=== PATIENT | male | born 1985 | race African-American/Black ===

== ENCOUNTER 2017-08-01 20:51 | Emergency (ER) | payer SELFPAY ==
[2017-08-01 21:06] VITALS: BP 151/74
[2017-08-01] MEDS ORDERED: LOPERAMIDE HCL 2 MG CAPSULE PO ONE (22:02)
[2017-08-01] MEDS ORDERED: ONDANSETRON 4 MG TAB.RAPDIS PO ONE (22:02)
--- NOTE | 2017-08-01 22:06 | ER Document Report ---
ED General - General Chief Complaint: Nausea/Vomiting Stated Complaint: FLU LIKE SYMPTOMS Time Seen by Provider: 08/01/17 21:54 Mode of Arrival: Ambulatory Information source: Patient Notes: 31-year-old male with no significant past medical history presents with complaint of nausea and diarrhea. Patient states symptoms started 3 hours prior to arrival. He has had 2 episodes of nonbloody nonbilious vomiting and 2 episodes of nonbloody diarrhea. He denies any associated fever, chills, chest pain shortness of breath, or abdominal pain. Patient's last episode of vomiting was 2 hours prior to arrival. Denies sick contacts, recent travel, recent antibiotic use. TRAVEL OUTSIDE OF THE [place] IN LAST 30 DAYS: No - HPI Onset: This evening Onset/Duration: Gradual Quality of pain: No pain Associated symptoms: Diarrhea, Nausea. denies: Vomiting Exacerbated by: Denies Relieved by: Denies Similar symptoms previously: No Recently seen / treated by doctor: No - Related Data Allergies/Adverse Reactions: No Known Allergies Allergy (Verified 11/25/14 13:54) Past Medical History - Social History Smoking Status: Current Every Day Smoker Frequency of alcohol use: Occasional Drug Abuse: Marijuana Lives with: Spouse/Significant other Family History: Reviewed & Not Pertinent Patient has suicidal ideation: No Patient has homicidal ideation: No - Medical History Medical History: Negative - Past Medical History Cardiac Medical History: Reports: None Pulmonary Medical History: Reports: None Renal/ Medical History: Denies: Hx Peritoneal Dialysis - Immunizations Hx Diphtheria, Pertussis, Tetanus Vaccination: Yes Review of Systems - Review of Systems Constitutional: Chills, Weakness. denies: Fever EENT: No symptoms reported Cardiovascular: No symptoms reported Gastrointestinal: Diarrhea, Nausea, Vomiting. denies: Blood streaked bowels, Poor fluid intake, Blood in vomit, Black stools Genitourinary: denies: Dysuria, Flank pain Physical Exam - Vital signs Vitals: Temp Pulse Resp BP Pulse Ox 98.7 F 67 17 151/74 H 67 L 08/01/17 20:52 08/01/17 20:52 08/01/17 20:52 08/01/17 20:52 08/01/17 20:52 Course - Re-evaluation Re-evalutation: 08/01/17 22:12 31-year-old male with no significant past medical history presents with complaint of 2 episodes of vomiting and 2 episodes of diarrhea that started just prior to arrival. Arrival vitals reviewed and within normal limits. Patient does not appear toxic or dehydrated. He is in no acute distress. Exam is within normal limits. Patient was administered Zofran, loperamide during his ED course. Patient tolerated fluids prior to discharge. Patient was discharged home in stable condition with prescriptions for Zofran and loperamide. - Vital Signs Vital signs: Temp Pulse Resp BP Pulse Ox 98.7 F 67 17 151/74 H 99 08/01/17 21:02 08/01/17 21:02 08/01/17 21:02 08/01/17 21:02 08/01/17 21:02 Discharge - Discharge Clinical Impression: Diarrhea, Nausea & vomiting Condition: Good Disposition: HOME, SELF-CARE Instructions: Prescribed Antidiarrhea Medications ([facility]), Antinausea Medication ([facility]), Diarrhea, Nonspecific ([facility]), Vomiting ([facility]) Prescriptions: Loperamide HCl [Loperamide] 2 mg PO Q8H PRN 4 Days #12 capsule PRN Reason: Ondansetron [Zofran Odt 4 mg Tablet] 1 - 2 tab PO Q4H PRN #15 tab.rapdis PRN Reason: For Nausea/Vomiting
== END 2017-08-01 22:45 | disposition home or self-care (01) ==
LOC: ER 20:51
DX: R11.2 Nausea with vomiting, unspecified (principal); R19.7 Diarrhea, unspecified; R68.83 Chills (without fever); R53.1 Weakness; F17.200 Nicotine dependence, unspecified, uncomplicated
CPT/HCPCS: 99283; S0119

== ENCOUNTER 2017-09-28 20:23 | Emergency (ER) | payer SELFPAY ==
--- NOTE | 2017-09-28 21:35 | RADIOLOGY REPORT (SQ) ---
EXAM DESCRIPTION: WRIST RIGHT 3 VIEWS COMPLETED DATE/TIME: 09/28/2017 9:16 pm REASON FOR STUDY: Pain s/p injury COMPARISON: None. NUMBER OF VIEWS: Three views. TECHNIQUE: AP, lateral, and oblique radiographic images acquired of the right wrist. LIMITATIONS: None. FINDINGS: MINERALIZATION: Normal. BONES: No acute fracture or dislocation. No worrisome bone lesions. Normal alignment. SOFT TISSUES: No soft tissue swelling. No foreign body. OTHER: No other significant finding. IMPRESSION: NO RADIOGRAPHIC EVIDENCE OF ACUTE INJURY. TECHNICAL DOCUMENTATION: JOB ID: [id number] [place]-72 2010 [employer]- All Rights Reserved Reading location - IP/workstation name: [email or web address]
--- NOTE | 2017-09-28 21:38 | RADIOLOGY REPORT (SQ) ---
EXAM DESCRIPTION: HAND RIGHT 3 VIEWS COMPLETED DATE/TIME: 09/28/2017 9:16 pm REASON FOR STUDY: Pain s/p injury COMPARISON: None. EXAM PARAMETERS: NUMBER OF VIEWS: Three views. TECHNIQUE: AP, lateral and oblique radiographic images acquired of the right hand. LIMITATIONS: None. FINDINGS: MINERALIZATION: Normal. BONES: No acute fracture or dislocation. No worrisome bone lesions. JOINTS: No effusions. SOFT TISSUES: No soft tissue swelling. No foreign body. OTHER: No other significant finding. IMPRESSION: NO RADIOGRAPHIC EVIDENCE OF ACUTE INJURY. TECHNICAL DOCUMENTATION: JOB ID: [id number] [place]-72 2010 [employer]- All Rights Reserved Reading location - IP/workstation name: [email or web address]
[2017-09-28] MEDS ORDERED: HYDROCODONE/ACETAMINOPHEN 5-325 MG (6 TAB/ER DISP) PO PRN (22:20)
--- NOTE | 2017-09-28 22:21 | ER Document Report ---
HPI - HPI Patient complains to provider of: Right wrist injury Onset: Yesterday Onset/Duration: Sudden Quality of pain: Achy Pain Level: 4 Context: Patient states that he fell while rollerskating injuring his right wrist. Patient is right-hand dominant. Patient complains of continued right wrist tenderness. Associated Symptoms: Other - Right wrist pain Exacerbated by: Movement Relieved by: Denies Similar symptoms previously: No Recently seen / treated by doctor: No - ROS ROS below otherwise negative: Yes Systems Reviewed and Negative: Yes All other systems reviewed and negative - REPRODUCTIVE Reproductive: DENIES: : - MUSCULOSKELETAL Musculoskeletal: REPORTS: Extremity pain - DERM Skin Problems: None Past Medical History - General Information source: Patient - Social History Smoking Status: Current Every Day Smoker Smoking Education Provided: Yes Frequency of alcohol use: None Drug Abuse: None Occupation: None Family History: Reviewed & Not Pertinent - Medical History Medical History: Negative Renal/ Medical History: Denies: Hx Peritoneal Dialysis Surgical Hx: Negative - Immunizations Hx Diphtheria, Pertussis, Tetanus Vaccination: Yes Vertical Provider Document - CONSTITUTIONAL Agree With Documented VS: Yes Exam Limitations: No Limitations General Appearance: WD/WN, No Apparent Distress - INFECTION CONTROL TRAVEL OUTSIDE OF THE [place] IN LAST 30 DAYS: No - HEENT HEENT: Atraumatic, Normocephalic - NECK Neck: Normal Inspection - RESPIRATORY Respiratory: No Respiratory Distress - CARDIOVASCULAR Pulses: Normal: Radial - BACK Back: Normal Inspection - MUSCULOSKELETAL/EXTREMETIES Musculoskeletal/Extremeties: MAEW, Tender - Right wrist tenderness over distal ulna, no deformity, no obvious edema - NEURO Level of Consciousness: Awake, Alert, Appropriate Motor/Sensory: No Motor Deficit, No Sensory Deficit - DERM Integumentary: Warm, Dry, No Rash Course - Re-evaluation Re-evalutation: 09/28/17 22:19 X-ray reviewed, no obvious fracture. Will treat for sprain at this time. Patient encouraged to follow-up with orthopedic doctor for any continued pain or problems. - Vital Signs Vital signs: Temp Pulse Resp BP Pulse Ox 98.5 F 89 20 118/68 95 09/28/17 20:31 09/28/17 20:31 09/28/17 20:31 09/28/17 20:31 09/28/17 20:31 Procedures - Immobilization Right Wrist Pre-Proc Neuro Vasc Exam: Normal Immobilizer type: Cock-up Performed by: RN Post-Proc Neuro Vasc Exam: Normal Alignment checked and good: Yes Discharge - Discharge Clinical Impression: Right wrist sprain Qualifiers: Encounter type: initial encounter Qualified Code(s): S63.501A - Unspecified sprain of right wrist, initial encounter Condition: Stable Disposition: HOME, SELF-CARE Instructions: Ice & Elevation ([facility]), Wrist Sprain ([facility]), Temporary Splint ([facility]) Additional Instructions: Return immediately for any new or worsening symptoms Followup with your primary care provider, call tomorrow to make a followup appointment Follow-up with orthopedic doctor for any continued pain or problems Prescriptions: Naproxen [Naprosyn 250 Nmg Tablet] 1 tab PO BID #14 tablet Forms: Smoking Cessation Education Referrals: [facility] [Provider Group] - Follow up as needed
[2017-09-28 23:51] VITALS: BP 111/63
== END 2017-09-28 22:33 | disposition home or self-care (01) ==
LOC: ER 20:23
DX: S63.501A Unspecified sprain of right wrist, initial encounter (principal); V00.121A Fall from non-in-line roller-skates, initial encounter; Y93.51 Activity, roller skating (inline) and skateboarding; F17.200 Nicotine dependence, unspecified, uncomplicated
CPT/HCPCS: 99283; 73130; 73110; L3908

== ENCOUNTER 2017-10-11 22:16 | Emergency (ER) | payer SELFPAY ==
[2017-10-11] MEDS ORDERED: HYDROCODONE/ACETAMINOPHEN 5-325 MG (6 TAB/ER DISP) PO PRN (23:38)
--- NOTE | 2017-10-11 23:41 | ER Document Report ---
HPI - HPI Patient complains to provider of: Right wrist pain Onset: Other - 09/28/2017 Onset/Duration: Persistent Quality of pain: Achy Pain Level: 4 Context: Patient states that he fell while rollerskating on 09/28/2017. Patient has had persistent right wrist pain since then. Patient has not followed up with an orthopedic doctor or primary care provider. Patient denies any new injury. Patient is right-hand dominant. Patient has not taken any medications today to help treat his symptoms. Associated Symptoms: Other - Right wrist pain. denies: Fever, Weakness Exacerbated by: Movement Relieved by: Denies Similar symptoms previously: No Recently seen / treated by doctor: Yes - ROS ROS below otherwise negative: Yes Systems Reviewed and Negative: Yes All other systems reviewed and negative - CONSTITUTIONAL Constitutional: DENIES: Fever - NEURO Neurology: DENIES: Weakness - GASTROINTESTINAL Gastrointestinal: DENIES: Nausea - REPRODUCTIVE Reproductive: DENIES: : - MUSCULOSKELETAL Musculoskeletal: REPORTS: Extremity pain. DENIES: Back Pain - DERM Skin Color: Normal Skin Problems: None Past Medical History - General Information source: Patient - Social History Smoking Status: Current Every Day Smoker Smoking Education Provided: Yes Frequency of alcohol use: Occasional Drug Abuse: None Occupation: None Family History: Reviewed & Not Pertinent Renal/ Medical History: Denies: Hx Peritoneal Dialysis Musculoskeltal Medical History: Reports Other - Carpal tunnel, tendinitis Surgical Hx: Negative - Immunizations Hx Diphtheria, Pertussis, Tetanus Vaccination: Yes Vertical Provider Document - CONSTITUTIONAL Agree With Documented VS: Yes Exam Limitations: No Limitations General Appearance: WD/WN, No Apparent Distress - INFECTION CONTROL TRAVEL OUTSIDE OF THE [place] IN LAST 30 DAYS: No - HEENT HEENT: Atraumatic, Normocephalic - NECK Neck: Normal Inspection - RESPIRATORY Respiratory: No Respiratory Distress - CARDIOVASCULAR Pulses: Normal: Radial - MUSCULOSKELETAL/EXTREMETIES Musculoskeletal/Extremeties: MAEW, Tender - Right wrist tenderness over the dorsal aspect, tenderness increases with flexion, extension and supination. No deformity, 1+ edema, normal skin color and temperature overlying joint - NEURO Level of Consciousness: Awake, Alert, Appropriate Motor/Sensory: No Motor Deficit - DERM Integumentary: Warm, Dry, No Rash Course - Re-evaluation Re-evalutation: 10/11/17 23:39 Patient without any evidence of fracture on the previous x-ray reports. Patient encouraged to follow-up with orthopedics for further evaluation. - Vital Signs Vital signs: Temp Pulse Resp BP Pulse Ox 98.5 F 71 20 122/81 97 10/11/17 22:41 10/11/17 22:41 10/11/17 22:41 10/11/17 22:41 10/11/17 22:41 - Diagnostic Test Radiology reviewed: Reports reviewed - Reviewed radiology reports from previous ER visit Discharge - Discharge Clinical Impression: Right wrist pain Condition: Stable Disposition: HOME, SELF-CARE Instructions: Anti-Inflammatory Medication ([facility]), Wrist Sprain ([facility]) Additional Instructions: Return immediately for any new or worsening symptoms Followup with your primary care provider, call tomorrow to make a followup appointment Follow-up with orthopedics for further evaluation, call Saturday for an appointment Prescriptions: Naproxen [Naprosyn 250 Nmg Tablet] 1 tab PO BID #14 tablet Forms: Smoking Cessation Education Referrals: [facility] ([facility] [Provider Group] - 10/14/17
[2017-10-11 23:59] VITALS: BP 123/84
== END 2017-10-11 23:59 | disposition home or self-care (01) ==
LOC: ER 22:16
DX: M25.531 Pain in right wrist (principal); V00.121A Fall from non-in-line roller-skates, initial encounter; Y93.51 Activity, roller skating (inline) and skateboarding; F17.200 Nicotine dependence, unspecified, uncomplicated; R60.0 Localized edema
CPT/HCPCS: 99283

== ENCOUNTER 2018-01-05 03:31 | Emergency (ER) | payer OTHER ==
[2018-01-05] MEDS ORDERED: NORMAL SALINE 1000 ML 1,000 ML IV ONE (04:00)
--- NOTE | 2018-01-05 04:00 | ER Document Report ---
ED General - General Chief Complaint: Altered Mental Status Stated Complaint: POSSIBLE ALTERED MENTAL STATUS Time Seen by Provider: 01/05/18 03:49 Notes: Patient is a 32-year-old male who today his partner. 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 During rating concierge receptionist he started to act weird and started hallucinating and acting agitated. Eventually gone to calm down and brought him to the ER. Pupils are enlarged. Patient's thinks that maybe but he put something in his drink. Patient currently is hallucinating and difficult to get a history from. TRAVEL OUTSIDE OF THE [place] IN LAST 30 DAYS: No - Related Data Allergies/Adverse Reactions: No Known Allergies Allergy (Verified 11/25/14 13:54) Past Medical History - Social History Smoking Status: Never Smoker Frequency of alcohol use: None Drug Abuse: None Family History: Reviewed & Not Pertinent Renal/ Medical History: Denies: Hx Peritoneal Dialysis - Immunizations Hx Diphtheria, Pertussis, Tetanus Vaccination: Yes Review of Systems - Review of Systems Notes: My Normal Review Basic REVIEW OF SYSTEMS: CONSTITUTIONAL : Denies fever, chills, or sweats. Denies recent illness. CARDIOVASCULAR: Denies chest pain. RESPIRATORY: Denies cough, cold, or chest congestion. Denies shortness of breath, difficulty breathing, or wheezing. GASTROINTESTINAL: Denies abdominal pain. Denies nausea, vomiting, or diarrhea. Denies constipation. Last BM: MUSCULOSKELETAL: Denies neck or back pain or joint pain or swelling. SKIN: Denies rash or skin lesions. NEUROLOGICAL: Altered mental status. Hallucinating. Denies headache. Denies weakness or paralysis or loss of use of either side. Denies problems with gait or speech. Denies sensory or motor loss. ALL OTHER SYSTEMS REVIEWED AND NEGATIVE. Physical Exam - Notes Notes: General Appearance: Well nourished, alert, patient's having difficulty staying still. He is up and walk around the room. Vitals: reviewed, See vital signs table. Head: no swelling or tenderness to the head Eyes: Pupils are dilated but equal and mildly reactive to light Mouth: No decreasd moisture Lungs: No wheezing, No rales, No rhonci, No accessory muscle use, good air exchange bilaterally. Heart: Normal rate, Regular rythm, No murmur, no rub Abdomen: Normal BS, soft, No rigidity, No abdominal tenderness, No guarding, no rebound, no abdominal masses, no organomegaly Extremities: strength 5/5 in all extremities, good pulses in all extremities, no swelling or tenderness in the extremities, no edema. Skin: warm, dry, appropriate color, no rash Neuro: speech clear, patient is awake and alert but cannot stay still. He is constantly up and walking around the room. His pupils are dilated but equal. Patient is talking and saying things but they do not make sense. Course - Re-evaluation Re-evalutation: 01/05/18 06:25 Patient is now more oriented and able to tell me what happened. Patient admits that he took ecstasy today. Patient is still at times randomly saying random words that do not coincide with her conversation; however, he is much improved compared to the first arrived. Patient is not any hyperthermia. He is otherwise well-appearing. Is not tremulous or swelling. Symptoms are improving. I talked to him and his at length informed him that I am more than happy to watch him here for several more hours until his symptoms completely resolve where they are welcome to go home and rest at home being that the will be watching the patient closely. I feel that he is safe to be discharged home as his symptoms are improving effective the [place] he is wearing off. They prefer to go home at this time. I informed him return to ER if he has worsening of his symptoms or if they have any further concerns. Patient and agree with plan and patient was discharged home. Dictation of this chart was performed using voice recognition software; therefore, there may be some unintended grammatical errors. - Laboratory Result Diagrams: 01/05/18 04:12 01/05/18 04:12 Laboratory results interpreted by me: 01/05/18 01/05/18 01/05/18 04:12 04:12 04:12 WBC 12.7 H Seg Neuts % (Manual) 79 H Band Neutrophils % 1 L Abs Neuts (Manual) 10.2 H Creatinine 1.32 H Urine Ketones 20 H Urine Urobilinogen 2.0 H Urine Ascorbic Acid 20 H Salicylates < 1.0 L Acetaminophen < 10 L - EKG Interpretation by Me Additional EKG results interpreted by me: 01/05/18 04:13 EKG is reviewed and interpreted by me. EKG shows sinus rhythm with a rate of [address] segment elevation or depression. No ischemic T-wave inversions. MI interval, QRS duration, QTc intervals are within normal range. Discharge - Discharge Clinical Impression: Ecstasy abuse Condition: Good Disposition: HOME, SELF-CARE Additional Instructions: Please do not do any illegal drugs. Please return to the ER immediately if you have intractable vomiting, fevers, or feel unwell. Forms: Return to Work
[2018-01-05 04:29] LABS: HEMATOCRIT 42.2 % (37.9-51.0); HEMOGLOBIN 14.9 g/dL (13.5-17.0); MEAN CORPUSCULAR HEMOGLOBIN 29.8 pg (27.0-33.4); MEAN CORPUSCULAR HGB CONC 35.3 g/dL (32.0-36.0); MEAN CORPUSCULAR VOLUME 84 fl (80-97); RED BLOOD COUNT 5.01 10^6/uL (4.35-5.55); RED CELL DISTRIBUTION WIDTH 13.5 % (11.5-14.0); WHITE BLOOD COUNT 12.7 10^3/uL (4.0-10.5)
[2018-01-05 04:40] LABS: PLATELET COUNT 167 10^3/uL (150-450)
[2018-01-05 04:44] LABS: ALANINE AMINOTRANSFERASE 24 U/L (21-72); ALBUMIN 4.7 g/dL (3.5-5.0); ALKALINE PHOSPHATASE 54 U/L (38-126); ANION GAP 17 (5-19); ASPARTATE AMINO TRANSFERASE 39 U/L (17-59); BILIRUBIN,DIRECT 0.2 mg/dL (0.0-0.4); BILIRUBIN,TOTAL 0.8 mg/dL (0.2-1.3); BLOOD UREA NITROGEN 12 mg/dL (7-20); CALCIUM 9.7 mg/dL (8.4-10.2); CARBON DIOXIDE 25 mmol/L (22-30); CHLORIDE 99 mmol/L (98-107); GLUCOSE 94 mg/dL (75-110); POTASSIUM 3.6 mmol/L (3.6-5.0); SODIUM 140.5 mmol/L (137-145); TOTAL PROTEIN 7.9 g/dL (6.3-8.2)
[2018-01-05 04:49] LABS: ACETAMINOPHEN < 10 ug/mL (10-30); ALCOHOL < 10 mg/dL (NONE DETECTED); SALICYLATE < 1.0 mg/dL (2.0-20.0)
[2018-01-05 05:05] LABS: ABSOLUTE MONOCYTES # (MANUAL) 0.5 10^3/uL (0.1-1.4); ABSOLUTE NEUTROPHILS# (MANUAL) 10.2 10^3/uL (1.7-8.2); BAND NEUTROPHILS % (MANUAL) 1 % (3-5); BASOPHILS % (MANUAL) 0 % (0-2); EOSINOPHILS % (MANUAL) 0 % (0-6); LYMPHOCYTES % (MANUAL) 16 % (13-45); MONOCYTES % (MANUAL) 4 % (3-13); SEGMENTED NEUTROPHILS % (MAN) 79 % (42-78); TOTAL CELLS COUNTED 100
[2018-01-05 05:06] LABS: PLATELET COMMENT ADEQUATE; RBC MORPHOLOGY COMMENT NORMO-CYTIC/CHROMIC
[2018-01-05 05:20] LABS: APPEARANCE,URINE CLEAR; BILIRUBIN,URINE NEGATIVE (NEGATIVE); COLOR,URINE YELLOW; GLUCOSE, URINE NEGATIVE (NEGATIVE); KETONES,URINE 20 mg/dL (NEGATIVE); LEUKOCYTE ESTERASE,URINE NEGATIVE (NEGATIVE); NITRITE,URINE NEGATIVE (NEGATIVE); PROTEIN,URINE NEGATIVE (NEGATIVE)
[2018-01-05 05:50] LABS: URINE AMPHETAMINES SCREEN NEGATIVE; URINE BARBITURATES SCREEN NEGATIVE; URINE BENZODIAZEPINES SCREEN NEGATIVE; URINE COCAINE SCREEN NEGATIVE; URINE MARIJUANA (THC) SCREEN UNCONFIRMED POSITIVE; URINE METHADONE SCREEN NEGATIVE; URINE PHENCYCLIDINE SCREEN NEGATIVE
[2018-01-05] MEDS ORDERED: NICOTINE 7 MG/24 HR PATCH.TD24 TD ONE (05:59)
[2018-01-05 06:29] VITALS: BP 169/73
--- NOTE | 2018-01-05 09:54 | EKG REPORT ---
SEVERITY:- ABNORMAL ECG - SINUS RHYTHM MULTIPLE ATRIAL PREMATURE COMPLEXES PROBABLE LEFT VENTRICULAR HYPERTROPHY : Confirmed by: Jigar Costa 05-Jan-2018 09:53:42
== END 2018-01-05 06:13 | disposition home or self-care (01) ==
LOC: ER 03:31
DX: F16.10 Hallucinogen abuse, uncomplicated (principal)
CPT/HCPCS: 93005; 99285; 36415; 80307 ×4; 85025; 80053; 81001; 93010; J7030